=== PATIENT | male | born 1960 | race Caucasian/White ===

== ENCOUNTER 2018-12-10 16:21 | Emergency (ER) | payer OTHER ==
[2018-12-10] MEDS ORDERED: Dexamethasone 4 mg/ml Vial ONE (17:25)
[2018-12-10] MEDS ORDERED: Ketorolac Tromethamine 30 MG/ML VIAL ONE (17:25)
[2018-12-10 18:34] LABS: Bilirubin Negative (Negative); Blood, Urine Negative (Negative); Clarity Clear (Clear); Glucose, Urine (Dipstick) Normal (Negative); Leukocyte Negative Leu/uL (Negative); Nitrite Negative (Negative); Protein, Urine (Dipstick) 100 mg/dL (Neg-Trace); RBC/HPF None Seen HPF (0-3)
[2018-12-10 18:51] LABS: Bacteria/HPF None Seen HPF (None Seen); Sperm/HPF 4+ HPF (None Seen)
== END 2018-12-10 19:26 ==
LOC: ERS 16:21 → EEVIPCON 16:21 → ERS 19:26
DX: M54.42 Lumbago with sciatica, left side (principal); F41.9 Anxiety disorder, unspecified; F32.9 Major depressive disorder, single episode, unspecified
CPT/HCPCS: 81003; 81015; 99284; J1100; J1885

== ENCOUNTER 2018-12-11 19:43 | Emergency (ER) | payer OTHER ==
--- NOTE | 2018-12-11 20:08 | PDOC.EVN ---
Event Note - Event Note Event Note: Patient is a 58M who presented to the ED via EMS as a level 1 trauma activation s/p suicide attempt where he cut his Right lateral neck with a razor. Patient is a an inmate. EMS reported 500 mL blood loss on scene but patient was hypodermically stable and not tachycardic enroute. He did nto receive fluid or blood products prior to arrival. He reported SI and denied HI. On eval in the ED my Dr. Saldivar and myself, it was noted the patient has a single 5-6 cm laceration to the R anterolateral neck in zone 2. The laceration extended into the adipose tissue and did not violate the platysma. Bleeding was well controlled with direct pressure and the wound was explored by Dr. Reeder , myself, and Dr. Blackwood in the ED. HR 87, SBP 153, O2 100% on room air, RR 18 , GCS was 15. No concern for airway compromise. Dr. Saldivar differed to the ED provider after his evaluation at which time Dr. Cavazos downgraded the activation to a Level 2. ED provider also elected to not draw labs as well. Laceration repair and dispo per ED ED Provider, Dr. Zelaya. Trauma signing off. Please call with questions or concerns. Karina Sierra PA-C Trauma Surgery
--- NOTE | 2018-12-12 10:27 | HP ---
HISTORY OF PRESENT ILLNESS: Mr. Kuhn is a 58-year-old white male prisoner, who cut his right neck with a razor blade at the longterm. This was activated as a level one trauma as it was reported that he had a deep laceration with major vascular involvement. I was present in the emergency room at the time of the patient's arrival. The patient was hemodynamically stable and I immediately examined his neck. This was found to be relatively superficial. It did not appear to have penetrated the platysma. There was skin edge bleeding, but no major vascular injury. I cleansed the wound, locally anesthetized this with 1% lidocaine with epinephrine and explored a little more carefully to make sure I was not missing something. At the point that was obvious that this was superficial, I turned over the care of the laceration to the emergency room physician as this clearly did not require surgical closure. Job ID: [id number]
== END 2018-12-11 20:40 ==
LOC: ERS 19:43
DX: S11.91XA Laceration without foreign body of unspecified part of neck, initial encounter (principal); R45.851 Suicidal ideations; F41.9 Anxiety disorder, unspecified; F32.9 Major depressive disorder, single episode, unspecified; X78.8XXA Intentional self-harm by other sharp object, initial encounter
CPT/HCPCS: 12042; G0390

== ENCOUNTER 2019-04-09 11:32 | Emergency (ER) | payer OTHER | END 2019-04-09 14:04 | disposition home or self-care (01) | LOC: EEVIPCON 11:32 → ERS 11:32 | DX: R41.82 Altered mental status, unspecified (principal); I10 Essential (primary) hypertension; E11.9 Type 2 diabetes mellitus without complications; J44.9 Chronic obstructive pulmonary disease, unspecified; K21.9 Gastro-esophageal reflux disease without esophagitis; F41.9 Anxiety disorder, unspecified; F32.9 Major depressive disorder, single episode, unspecified; Z79.02 Long term (current) use of antithrombotics/antiplatelets; Z79.4 Long term (current) use of insulin; Z79.899 Other long term (current) drug therapy | CPT/HCPCS: 94760 ==

== ENCOUNTER 2019-12-29 14:45 | Emergency (ER) | payer OTHER ==
[2019-12-29 15:47] LABS: Hemoglobin 12.7 g/dL (14.0-18.0); Mean Corpuscular HGB CONC 34.5 g/dL (32.0-36.0); Mean Corpuscular Hemoglobin 31.1 pg (27.0-31.0); Mean Corpuscular Volume 90.2 fL (78.0-98.0); Mean Platelet Volume 6.6 fL (7.4-10.4); Platelet Count 218 thou/uL (130-400); RBC Distribution Width 11.7 % (11.5-14.5); Red Blood Cell (RBC) Count 4.08 mill/uL (4.70-6.10); White Blood Cell (WBC) Count 19.1 thou/uL (4.8-10.8)
[2019-12-29] MEDS ORDERED: Morphine 4 MG/ML VIAL ONE (15:47)
[2019-12-29] MEDS ORDERED: Ketorolac Tromethamine 30 MG/ML VIAL ONE (15:47)
[2019-12-29 16:09] LABS: Band 37 % (5-11); Lymphocytes 8 % (21-51); MDiff Complete? YES; Monocytes 4 % (0-10); Neutrophil 51 % (42-75); Platelet Morphology Comment Appears Adequate; Polychromasia SLIGHT = 2-3 cells (100X) (0-2/hpf)
[2019-12-29 16:13] LABS: ALT (SGPT) 11 U/L (8-55); AST (SGOT) 18 U/L (5-34); Albumin 3.8 g/dL (3.4-4.8); Alkaline Phosphatase 79 U/L (40-110); Anion Gap 15 mmol/L (10-20); BUN (Urea Nitrogen) 15 mg/dL (8.4-25.7); Bilirubin, Total 0.6 mg/dL (0.2-1.2); Calc. Creatinine Clearance 0 mL/min (70-130); Calcium 8.9 mg/dL (7.8-10.44); Carbon Dioxide 26 mmol/L (23-31); Chloride 94 mmol/L (98-107); Estimated GFR-MDRD 75; Globulin 3.7 g/dL (2.4-3.5); Glucose 168 mg/dL (80-115); Potassium 4.5 mmol/L (3.5-5.1); Protein, Total 7.5 g/dL (5.8-8.1); Sodium 130 mmol/L (136-145)
--- NOTE | 2019-12-29 16:21 | ULT ---
Scrotal sonogram with duplex evaluation HISTORY: Testicular pain and swelling. FINDINGS: Right testicle is 4.6 cm length. Normal appearance with good color and spectral Doppler alanna w. Left testicle measures up to 4.1 cm with increased internal color and spectral Doppler flow. Fluid wi thin the left side of the scrotum is mildly loculated. Epididymis is hyperemic. IMPRESSION : Left epididymoorchitis with septated small left hydrocele.. No evidence of testicular mass or torsion.
[2019-12-29 17:03] LABS: Bacteria/HPF 4+ HPF (None Seen); Bilirubin Negative (Negative); Blood, Urine 1+ (Negative); Clarity Turbid (Clear); Glucose, Urine (Dipstick) Normal (Negative); Ketone, Urine Negative (Negative); Leukocyte 250 Leu/uL (Negative); Nitrite Negative (Negative); Protein, Urine (Dipstick) 100 mg/dL (Neg-Trace); RBC/HPF 0-3 HPF (0-3); Specific Gravity, Urine 1.025 (1.002-1.036); Squamous Epithelial None Seen HPF (0-3); WBC/HPF 21-50 HPF (0-3)
[2019-12-29] MEDS ORDERED: Piperacillin/Tazobactam 4.5 GM VIAL ONE (18:16)
[2019-12-29] MEDS ORDERED: Sodium Chloride 0.9% 100 ML ONE (18:16)
[2019-12-29 19:54] LABS: Lactic Acid 1.9 mmol/L (0.5-2.2)
--- NOTE | 2019-12-30 01:29 | CON ---
DATE OF CONSULTATION: 12/29/2019 REASON FOR CONSULTATION: Left orchitis. HISTORY OF PRESENT ILLNESS: Mr. Kuhn is a 59-year-old male who is a prisoner , presented to the emergency room due to worsening left scrotal discomfort. Per emergency room, the patient was found to have T-max of fever reportedly, however , in the emergency room, he is afebrile at 98.8, and vital signs are stable. He relates history of left scrotal discomfort. He denies history of trauma, he is a prisoner, and most of the history is obtained per chart as his history is somewhat vague. He denies obstructive urinary symptoms, dysuria, gross hematuria, flank or abdominal pain. The patient's medical history includes diabetes, hepatitis C. Of recent , he tested positive for COVID-29 July 2019. He denies prior history of epididymo-orchitis. Currently, he is resting comfortably. He denies recent weight loss, fatigue, or recent fall. PAST MEDICAL HISTORY: Includes hypertension, CAD, hepatitis C, type 2 diabetes, chronic back pain, COPD, GERD, hearing loss, obstructive sleep apnea, osteoarthritis, of note COVID-19 tested positive July 2019. In December 2018, he presented with self-inflicted right neck razor blade trauma seen by General Surgery. PAST SURGICAL HISTORY: Includes appendectomy, coronary artery bypass grafting three vessel in 1996, cholecystectomy, and coronary artery stent. PSYCHIATRIC HISTORY: Includes anxiety and depression. SOCIAL HISTORY: He is a former smoker, lives in longterm, former alcoholic, the patient is a formal drug abuser with hepatitis C positive. REVIEW OF SYSTEMS: Ten-point review of systems is as above, otherwise noncontributory. PHYSICAL EXAMINATION: VITAL SIGNS: Reported fever of 102, however, in the emergency room he is afebrile of 98. Blood pressure and vital signs are stable and appears to be comfortable. GENERAL: The patient is in no acute distress. HEENT: Grossly unremarkable. Positive PPE in place HEART: Regular rate. LUNGS: Clear. The patient in four-point shackles. [facility] guards at bedside. ABDOMEN: Soft. No rigidity. No rebound. No suprapubic tenderness of concern. : Demonstrates a circumcised phallus. Meatus is grossly unremarkable. There is evidence of left scrotal swelling consistent with left epididymo-orchitis. There is mild reactive erythema of the scrotum consistent with epididymo-orchitis with reactive hydrocele. There is no gross evidence of fluctuance, crepitus, pitting edema of concern. Tenderness noted with elevation of the left hemiscrotum. Perineum inspected demonstrating no evidence of fluctuant mass, induration of concern. EXTREMITIES: No cyanosis, clubbing, or edema. Skin tattoos present no obvious rash or lesions of concern PERTINENT LABORATORY DATA: White count of 19, hemoglobin 12, and platelet 218. Sodium 130, BUN 15, creatinine 1.0. His lactic acid is elevated mildly at 2.5. Albumin 1.0. Urinalysis, in which straight cath specimen is obtained from the nursing staff and there was no significant postvoid residual of concern. Per nursing staff, catheter passed without significant issues. UA demonstrates yellow turbid urine, 100 protein, 1+ blood, 250 of leukocyte esterase, 0 to 3 rbc's, 20 to 50 wbc's, no epithelials, 4+ bacteria. Culture has been sent by the emergency room. He has been provided Zosyn and vancomycin from the emergency room. Scrotal ultrasound results and imaging which I reviewed myself: Demonstrates findings consistent with left epididymo-orchitis, with increased blood flow of the left testicle and epididymis consistent with left epididymo-orchitis. There is a loculated septated left hydrocele with no evidence of testicular abscess or torsion. DIAGNOSTIC STUDIES: CT of the abdomen and pelvis again, which I reviewed with contrast dating back January 2016, per my review, CT prostate volume is only 20 g. The bladder is not significantly distended. CT demonstrates bilateral symmetric enhancement, mild fullness of the left kidney, likely extrarenal pelvis of the left kidney, small left renal cortical cyst or perirenal fluid collection. IMPRESSION AND PLAN: Mr. Kuhn is a 59-year-old inmate with COVID-19 test positive July 2019. 1. History of coronary artery disease. 2. History of hepatitis C. 3. History of substance abuse. Presents with UA positive for urinary tract infection with ultrasound demonstrating left epididymo-orchitis. I reviewed the images, the patient's clinical history and physical exam consistent with epididymo-orchitis. There is no evidence of testicular abscess of concern. Recommend broad-spectrum antibiotics, Zosyn and vancomycin may be continued on the floor. Keep scrotum elevated. I do expect scrotal edema and swelling to persist minimum 2 to 3 weeks as epididymo-orchitis takes few weeks to resolve. Mackay catheter/CIC catheter was able to be passed without significant issues. There is no need for indwelling Mackay catheter or Flomax as he has no obstructive urinary symptoms of concern. Job ID: [id number] [facility]
== END 2019-12-29 21:03 | disposition short-term general hospital (02) ==
LOC: EDBD 14:45 → ERS 14:45
DX: A41.9 Sepsis, unspecified organism (principal); N45.3 Epididymo-orchitis; I10 Essential (primary) hypertension; K21.9 Gastro-esophageal reflux disease without esophagitis; M19.90 Unspecified osteoarthritis, unspecified site; G47.30 Sleep apnea, unspecified; E11.9 Type 2 diabetes mellitus without complications; J44.9 Chronic obstructive pulmonary disease, unspecified; F41.9 Anxiety disorder, unspecified; F32.9 Major depressive disorder, single episode, unspecified; Z86.19 Personal history of other infectious and parasitic diseases; Z87.891 Personal history of nicotine dependence; Z79.51 Long term (current) use of inhaled steroids; Z79.4 Long term (current) use of insulin; Z79.899 Other long term (current) drug therapy
CPT/HCPCS: 36415; 51701; 76870; 80053; 81003; 81015; 83605; 85025; 87040; 87077; 87086; 87186; 93976; 94760; 96361; 96365; 96366; 96367; 96375; J1885; J2270; J2543; J3370; J3490; J7030

== ENCOUNTER 2020-04-12 19:10 | Emergency (ER) | payer OTHER ==
--- NOTE | 2020-04-12 20:33 | RAD ---
EXAM: XR Ribs Lt>=2 View W/PA CXR PROVIDED CLINICAL HISTORY: Injury after falling. Patient complains of soreness and scrapes involving left chest COMPARISON: Chest x-ray on 04/09/2019 FINDINGS: Postoperative changes related to CABG are again seen. The cardiac silhouette is magnified by projecti on but does appear mildly enlarged. There is linear atelectasis present at the left lung base. Lungs otherwise appear clear. No pneumothorax or pleural effusion is seen on this exam. No rib fractu re is visualized. IMPRESSION: 1. No acute cardiopulmonary process. 2. Mild cardiomegaly. 3. No left-sided rib fracture is visualized.
--- NOTE | 2020-04-12 22:10 | RAD ---
LEFT ELBOW FOUR VIEWS: 04/12/20 COMPARISON: None. HISTORY: Injury, trauma, pain. FINDINGS: There is a comminuted nondisplaced proximal left ulnar fracture involving the olecranon. No evidence for dislocation. There is dorsal soft tissue swelling involving the forearm and there is volar athero sclerotic calcification. IMPRESSION: Comminuted nondisplaced olecranon/proximal left ulnar fracture. Orthopedic consultation advised. POS: ANTHONY
== END 2020-04-12 20:59 ==
LOC: EEVIPCON 19:10 → ERS 19:10
DX: S20.212A Contusion of left front wall of thorax, initial encounter (principal); S50.02XA Contusion of left elbow, initial encounter; S80.212A Abrasion, left knee, initial encounter; I10 Essential (primary) hypertension; J44.9 Chronic obstructive pulmonary disease, unspecified; K21.9 Gastro-esophageal reflux disease without esophagitis; F41.9 Anxiety disorder, unspecified; F32.9 Major depressive disorder, single episode, unspecified; Z87.891 Personal history of nicotine dependence; Z79.899 Other long term (current) drug therapy; W18.30XA Fall on same level, unspecified, initial encounter
CPT/HCPCS: 29105

== ENCOUNTER 2020-11-15 15:56 | Inpatient (IN) | payer OTHER ==
[2020-11-15 16:50] LABS: Bilirubin Negative (Negative); Blood, Urine Negative (Negative); Glucose, Urine (Dipstick) 100 mg/dL (Negative); Ketone, Urine Trace mg/dL (Negative); Leukocyte Negative (Negative); Nitrite Negative (Negative); Protein, Urine (Dipstick) 30 mg/dL (Neg-Trace); Urobilinogen 0.2 mg/dL (Less than 2); pH, Urine 5.5 (5.0-9.0)
[2020-11-15 16:55] LABS: #Basophils 0.1 thou/uL (0.0-0.2); #Eosinphils 0.1 thou/uL (0.0-0.7); #Lymphocytes 1.9 thou/uL (1.20-3.40); #Monocytes 0.6 thou/uL (0.11-0.59); #Neutrophils 5.8 thou/uL (1.40-6.50); %Basophils 0.7 % (0.0-1.0); %Eosinophils 0.9 % (0.0-10.0); %Lymphocytes 22.4 % (21.0-51.0); %Monocytes 7.3 % (0.0-10.0); %Neutrophils 68.7 % (42.0-75.0); Hemoglobin 11.8 g/dL (14.0-18.0); Mean Corpuscular HGB CONC 35.2 g/dL (32.0-36.0); Mean Corpuscular Hemoglobin 32.4 pg (27.0-31.0); Mean Platelet Volume 6.9 fL (7.4-10.4); Platelet Count 165 thou/uL (130-400); RBC Distribution Width 11.9 % (11.5-14.5); Red Blood Cell (RBC) Count 3.66 mill/uL (4.70-6.10); White Blood Cell (WBC) Count 8.4 thou/uL (4.8-10.8)
[2020-11-15 16:57] LABS: Clarity Clear (Clear); Specific Gravity, Urine 1.022 (1.002-1.036)
[2020-11-15 17:01] LABS: Amphetamine Not Detected (NotDetected); Barbiturates Screen Not Detected (NotDetected); Benzodiazepine Screen Not Detected (NotDetected); Cocaine Metabolite Screen Not Detected (NotDetected); Medtox Control Line Valid? VALID (VALID); Medtox Reader # READER 4; Methadone Not Detected (NotDetected); Methamphetamine Not Detected (NotDetected); Opiate Screen Not Detected (NotDetected); Oxycodone Screen Not Detected (NotDetected); Phencyclidine (PCP) Not Detected (NotDetected); THC/Cannabinoid Screen Not Detected (NotDetected); Tricyclic Screen Not Detected (NotDetected)
[2020-11-15 17:02] LABS: Bacteria/HPF None Seen HPF (None Seen); RBC/HPF 0-3 HPF (0-3); Squamous Epithelial 0-3 HPF (0-3); WBC/HPF 0-3 HPF (0-3)
[2020-11-15 17:35] LABS: ALT (SGPT) 14 U/L (8-55); AST (SGOT) 17 U/L (5-34); Acetaminophen Less than 6.0 mcg/mL (10.0-30.0); Albumin 3.7 g/dL (3.4-4.8); Alcohol Less than 10 mg/dL (Less than 10); Alkaline Phosphatase 65 U/L (40-110); Anion Gap 15 mmol/L (10-20); BUN (Urea Nitrogen) 14 mg/dL (8.4-25.7); Bilirubin, Total 0.3 mg/dL (0.2-1.2); CK (CPK) 62 U/L (30-200); Calc. Creatinine Clearance 0 mL/min (70-130); Calcium 8.6 mg/dL (7.8-10.44); Carbon Dioxide 26 mmol/L (23-31); Chloride 101 mmol/L (98-107); Globulin 2.4 g/dL (2.4-3.5); Glucose 223 mg/dL (80-115); Lipase 43 U/L (8-78); Protein, Total 6.1 g/dL (5.8-8.1); Salicylate Less than 8.0 mg/dL (15.0-30.0); Sodium 138 mmol/L (136-145)
[2020-11-15 17:40] LABS: Carbamazepine-Tegretol 5.4 ug/mL (4.0-12.0)
[2020-11-15] MEDS ORDERED: Dextrose 5% in Water 1,000 ML IV PRN (21:02)
[2020-11-15] MEDS ORDERED: Dextrose 50% Abboject 50 ML SYRINGE SLOW IVP PRN (21:02)
[2020-11-15] MEDS ORDERED: Acetaminophen 650 MG Suppository PR PRN (21:02)
[2020-11-15] MEDS ORDERED: Ondansetron PF 4 MG/2 ML Vial IVP PRN (21:02)
[2020-11-15] MEDS ORDERED: HumaLOG 300 UNITS/3 ML VIAL SC PRN (21:02)
[2020-11-16 01:09] LABS: SARS-CoV-2 NAA Rapid Test Not Detected (NotDetected)
[2020-11-16 03:30] VITALS: BMI 32.7
[2020-11-16] MEDS ORDERED: Sodium Chloride 0.9% 1,000 ML IV SCH (07:00)
[2020-11-16 07:36] LABS: #Eosinphils 0.1 thou/uL (0.0-0.7); #Lymphocytes 1.5 thou/uL (1.20-3.40); #Monocytes 0.6 thou/uL (0.11-0.59); #Neutrophils 4.3 thou/uL (1.40-6.50); %Basophils 0.5 % (0.0-1.0); %Eosinophils 1.1 % (0.0-10.0); %Lymphocytes 22.9 % (21.0-51.0); %Monocytes 8.9 % (0.0-10.0); %Neutrophils 66.6 % (42.0-75.0); Hemoglobin 12.7 g/dL (14.0-18.0); Mean Corpuscular HGB CONC 34.6 g/dL (32.0-36.0); Mean Corpuscular Hemoglobin 32.1 pg (27.0-31.0); Mean Corpuscular Volume 92.8 fL (78.0-98.0); Mean Platelet Volume 7.2 fL (7.4-10.4); Platelet Count 174 thou/uL (130-400); RBC Distribution Width 12.1 % (11.5-14.5); Red Blood Cell (RBC) Count 3.95 mill/uL (4.70-6.10); White Blood Cell (WBC) Count 6.5 thou/uL (4.8-10.8)
[2020-11-16 07:42] LABS: Hemoglobin A1c 8.7 % (4.0-6.0)
[2020-11-16 07:55] LABS: Anion Gap 12 mmol/L (10-20); BUN (Urea Nitrogen) 8 mg/dL (8.4-25.7); Calc. Creatinine Clearance 127 mL/min (70-130); Calcium 9.1 mg/dL (7.8-10.44); Carbon Dioxide 26 mmol/L (23-31); Chloride 105 mmol/L (98-107); Glucose 238 mg/dL (80-115); Potassium 4.2 mmol/L (3.5-5.1); Sodium 139 mmol/L (136-145)
[2020-11-16] MEDS ORDERED: Piperacillin/Tazobactam 4.5 GM in Sodium Chloride 0.9% 100 ML IVPB SCH (08:00)
[2020-11-16] MEDS: Acetaminophen 325 MG TAB PO PRN ×2 (10:18→20:22)
[2020-11-16] MEDS: Ondansetron ODT 4 MG TAB PO PRN ×2 (10:33→20:24)
[2020-11-16] MEDS: HumaLOG 300 UNITS/3 ML VIAL SC PRN (17:28)
[2020-11-16] MEDS ORDERED: Aspirin 81 mg Enteric Coated Tablet PO SCH (19:30)
[2020-11-16] MEDS ORDERED: Clopidogrel Bisulfate 75 MG TAB PO SCH (19:45)
[2020-11-16] MEDS: Aripiprazole 10 MG TAB PO SCH (20:22)
[2020-11-16] MEDS: Atorvastatin Calcium 40 MG TAB PO SCH (20:23)
[2020-11-16] MEDS: carBAMazepine 200 MG TAB PO SCH (20:24)
[2020-11-16] MEDS: NPH, Human Insulin Isophane 300 UNIT/3 ML VIAL SC SCH (20:27)
[2020-11-17] MEDS ORDERED: Melatonin 3 MG TAB PO SCH ×2 (01:45→20:30)
[2020-11-17] MEDS: NPH, Human Insulin Isophane 300 UNIT/3 ML VIAL SC SCH ×2 (09:02→20:45)
[2020-11-17] MEDS: Aspirin 81 mg Enteric Coated Tablet PO SCH (09:02)
[2020-11-17] MEDS: Clopidogrel Bisulfate 75 MG TAB PO SCH (09:02)
[2020-11-17] MEDS ORDERED: Morphine 2 MG/ML VIAL SLOW IVP PRN (09:42)
[2020-11-17] MEDS: HumaLOG 300 UNITS/3 ML VIAL SC PRN ×2 (11:16→17:20)
[2020-11-17] MEDS: Gabapentin 100 MG CAP PO PRN (12:02)
[2020-11-17] MEDS: Acetaminophen 325 MG TAB PO PRN (13:44)
[2020-11-17] MEDS ORDERED: Insulin Regular 300 UNITS/3 ML VIAL SC PRN (17:36)
[2020-11-17] MEDS: Aripiprazole 10 MG TAB PO SCH (20:44)
[2020-11-17] MEDS: Atorvastatin Calcium 40 MG TAB PO SCH (20:44)
[2020-11-17] MEDS: carBAMazepine 200 MG TAB PO SCH (20:45)
[2020-11-18] MEDS ORDERED: Lorazepam 2 MG/ML VIAL SLOW IVP SCH (03:30)
[2020-11-18 05:58] LABS: Anion Gap 14 mmol/L (10-20); BUN (Urea Nitrogen) 13 mg/dL (8.4-25.7); Calc. Creatinine Clearance 121 mL/min (70-130); Carbon Dioxide 22 mmol/L (23-31); Chloride 103 mmol/L (98-107); Glucose 232 mg/dL (80-115); Potassium 4.9 mmol/L (3.5-5.1); Sodium 134 mmol/L (136-145)
[2020-11-18] MEDS: HumaLOG 300 UNITS/3 ML VIAL SC PRN ×2 (06:42→12:41)
[2020-11-18 07:18] LABS: Hemoglobin 13.8 g/dL (14.0-18.0); Mean Corpuscular HGB CONC 33.5 g/dL (32.0-36.0); Mean Corpuscular Hemoglobin 31.4 pg (27.0-31.0); Mean Corpuscular Volume 93.6 fL (78.0-98.0); Mean Platelet Volume 6.6 fL (7.4-10.4); Platelet Count 213 thou/uL (130-400); RBC Distribution Width 12.3 % (11.5-14.5)
[2020-11-18 07:29] LABS: INR-International Normal Ratio 0.9; PTT 25.4 sec (22.9-36.1); Prothrombin Time 12.3 sec (12.0-14.7)
[2020-11-18] MEDS: Clopidogrel Bisulfate 75 MG TAB PO SCH (08:58)
[2020-11-18] MEDS: Aspirin 81 mg Enteric Coated Tablet PO SCH (08:58)
[2020-11-18] MEDS: Gabapentin 100 MG CAP PO PRN ×2 (08:58→16:53)
[2020-11-18] MEDS: NPH, Human Insulin Isophane 300 UNIT/3 ML VIAL SC SCH (09:08)
[2020-11-18] MEDS ORDERED: Venlafaxine XR 37.5 MG CAP PO SCH (10:15)
[2020-11-18] MEDS: Lorazepam 0.5 MG TAB PO PRN ×2 (12:31→16:54)
[2020-11-18] MEDS: Acetaminophen 325 MG TAB PO PRN ×2 (12:31→16:53)
[2020-11-18 12:39] VITALS: TEMP 98.2
[2020-11-18] MEDS ORDERED: methylPREDNISolone Sod Succ/PF 125 MG/2 ML VIAL IVP SCH (14:15)
[2020-11-18] MEDS ORDERED: Lidocaine 5% Patch TD SCH (15:00)
[2020-11-18 16:33] VITALS: BP 133/73
[2020-11-18] MEDS ORDERED: Venlafaxine HCl XR 75 MG CAP PO SCH (21:00)
[2020-11-19] MEDS ORDERED: Transdermal Patch Removal TOP SCH (03:00)
[2020-11-19] MEDS ORDERED: Venlafaxine XR 37.5 MG CAP PO SCH (09:00)
== END 2020-11-18 18:50 | DRG 100 ==
LOC: ERS 15:56 → EEVIPCON 15:56 → 2SE 20:24
PROVIDERS: ADMIT Student in an Organized Health Care Education/Training Program; ATTEND Internal Medicine
DX: G40.909 Epilepsy, unspecified, not intractable, without status epilepticus (principal); G93.41 Metabolic encephalopathy; Q21.1 Atrial septal defect; I10 Essential (primary) hypertension; Z20.822 Contact with and (suspected) exposure to COVID-19; I25.10 Atherosclerotic heart disease of native coronary artery without angina pectoris; E11.65 Type 2 diabetes mellitus with hyperglycemia; G89.29 Other chronic pain; J44.9 Chronic obstructive pulmonary disease, unspecified; K21.9 Gastro-esophageal reflux disease without esophagitis; H91.90 Unspecified hearing loss, unspecified ear; Z88.8 Allergy status to other drugs, medicaments and biological substances; D64.9 Anemia, unspecified; M19.90 Unspecified osteoarthritis, unspecified site; G47.33 Obstructive sleep apnea (adult) (pediatric); F41.9 Anxiety disorder, unspecified; F32.9 Major depressive disorder, single episode, unspecified; M25.512 Pain in left shoulder; R07.9 Chest pain, unspecified; R32 Unspecified urinary incontinence; M54.16 Radiculopathy, lumbar region; M50.20 Other cervical disc displacement, unspecified cervical region; Z86.19 Personal history of other infectious and parasitic diseases; Z88.5 Allergy status to narcotic agent; Z86.16 Personal history of COVID-19; Z95.1 Presence of aortocoronary bypass graft; Z90.49 Acquired absence of other specified parts of digestive tract; Z95.5 Presence of coronary angioplasty implant and graft; Z87.891 Personal history of nicotine dependence; Z79.01 Long term (current) use of anticoagulants; Z79.82 Long term (current) use of aspirin; Z79.4 Long term (current) use of insulin; Z79.51 Long term (current) use of inhaled steroids; Z79.899 Other long term (current) drug therapy
CPT/HCPCS: 36415; 36416; 70450; 70551; 71045; 72141; 72148; 80048; 80053; 80156; 80306; 80307; 81003; 81015; 82140; 82550; 83036; 83690; 83880; 84443; 84484; 85025; 85027; 85610; 85730; 87040; 93005; 93306; 95712; 95819; 95957; J1815; J2060; J2270; J2543; J2930; J3490; Q0162; U0002; U0005

== ENCOUNTER 2024-05-27 19:24 | Observation (INO) | payer OTHER ==
[2024-05-27] MEDS ORDERED: Dextrose 50% Abboject 50 ML SYRINGE SLOW IVP PRN (21:13)
[2024-05-27] MEDS ORDERED: Ondansetron ODT 4 MG TAB PO PRN (21:13)
[2024-05-27] MEDS ORDERED: Glucagon 1 MG/ML KIT IM PRN (21:13)
[2024-05-27] MEDS ORDERED: Ondansetron PF 4 MG/2 ML Vial IVP PRN (21:13)
[2024-05-27] MEDS ORDERED: Dextrose 5% in Water 1,000 ML IV PRN (21:13)
[2024-05-27] MEDS ORDERED: Lorazepam 2 MG/ML VIAL SLOW IVP PRN (21:17)
[2024-05-27] MEDS ORDERED: Ipratropium/Albuterol 3 ML NEB NEB PRN (21:21)
[2024-05-27 21:44] LABS: #Basophils Less than 0.03 10x3/uL (0.0-0.2); %Basophils 0.1 % (0.0-1.0); %Eosinophils 0.6 % (0.0-10.0); %Lymphocytes 18.5 % (21.0-51.0); %Monocytes 7.9 % (0.0-10.0); %Neutrophils 72.6 % (42.0-75.0); Hematocrit 35.2 % (42.0-52.0); Hemoglobin 11.9 g/dL (14.0-18.0); Mean Corpuscular HGB CONC 33.8 g/dL (32.0-36.0); Mean Corpuscular Hemoglobin 29.6 pg (27.0-31.0); Mean Corpuscular Volume 87.6 fL (78.0-98.0); Mean Platelet Volume 9.1 fL (7.4-10.4); Platelet Count 178 10x3/uL (130-400); RBC Distribution Width 13.5 % (11.5-14.5); Red Blood Cell (RBC) Count 4.02 mill/uL (4.70-6.10)
[2024-05-27] MEDS: HYDROcodone/Acetaminophen 5/325 mg Tablet PO PRN (21:49)
[2024-05-27] MEDS: Insulin Lispro 100 UNIT/ML 10 ML VIAL SC PRN (21:50)
[2024-05-27 22:01] VITALS: BMI 33.3
[2024-05-27 22:04] LABS: Carbamazepine-Tegretol 11.6 ug/mL (4.0-12.0)
[2024-05-27 22:07] LABS: ALT (SGPT) 8 U/L (8-55); AST (SGOT) 12 U/L (5-34); Alkaline Phosphatase 82 U/L (40-110); Anion Gap 17 mmol/L (10-20); BUN (Urea Nitrogen) 11 mg/dL (8.4-25.7); Bilirubin, Total 0.2 mg/dL (0.2-1.2); Calc. Creatinine Clearance 110 mL/min (70-130); Calcium 8.3 mg/dL (7.8-10.44); Carbon Dioxide 21 mmol/L (23-31); Chloride 107 mmol/L (98-107); Estimated GFR 95; Globulin 3.2 g/dL (2.4-3.5); Glucose 306 mg/dL (80-115); Magnesium 1.6 mg/dL (1.6-2.6); Potassium 3.6 mmol/L (3.5-5.1); Protein, Total 6.2 g/dL (5.8-8.1); Sodium 141 mmol/L (136-145)
[2024-05-27] MEDS: Ketorolac Tromethamine 30 MG (1 mL) VIAL IVP SCH (23:57)
[2024-05-28] MEDS: Sodium Bicarb 50 mEq/50 ML VIAL IVP SCH (01:49)
[2024-05-28 02:10] LABS: Carbamazepine-Tegretol 10.4 ug/mL (4.0-12.0)
[2024-05-28 03:00] LABS: Amphetamine Not Detected (NotDetected); Barbiturates Screen Not Detected (NotDetected); Benzodiazepine Screen Not Detected (NotDetected); Cocaine Metabolite Screen Not Detected (NotDetected); Methadone Not Detected (NotDetected); Methamphetamine Not Detected (NotDetected); Opiate Screen Detected (NotDetected); Oxycodone Screen Not Detected (NotDetected); Phencyclidine (PCP) Not Detected (NotDetected); THC/Cannabinoid Screen Not Detected (NotDetected); Tricyclic Screen Not Detected (NotDetected)
[2024-05-28 04:39] LABS: ALT (SGPT) 7 U/L (8-55); AST (SGOT) 11 U/L (5-34); Acetaminophen Less than 10 mcg/mL (Less than 10); Albumin 2.7 g/dL (3.4-4.8); Alcohol Less than 10.0 mg/dL (Less than 10); Alkaline Phosphatase 87 U/L (40-110); Anion Gap 14 mmol/L (10-20); BUN (Urea Nitrogen) 9 mg/dL (8.4-25.7); Bilirubin, Total 0.1 mg/dL (0.2-1.2); Calc. Creatinine Clearance 126 mL/min (70-130); Calcium 8.2 mg/dL (7.8-10.44); Carbon Dioxide 25 mmol/L (23-31); Chloride 106 mmol/L (98-107); Estimated GFR 99; Globulin 3.1 g/dL (2.4-3.5); Glucose 311 mg/dL (80-115); Potassium 3.7 mmol/L (3.5-5.1); Protein, Total 5.8 g/dL (5.8-8.1); Salicylate Less than 8.0 mg/dL (Less than 8.0); Sodium 141 mmol/L (136-145)
[2024-05-28 05:25] LABS: Carbamazepine-Tegretol 9.6 ug/mL (4.0-12.0)
[2024-05-28] MEDS: Isosorbide Mononitrate 30 MG ER.TAB PO SCH (08:45)
[2024-05-28] MEDS: Venlafaxine HCl XR 75 MG CAP PO SCH (08:45)
[2024-05-28] MEDS: metFORMIN 500 MG TAB PO SCH (08:45)
[2024-05-28] MEDS: Cyanocobalamin (Vitamin B-12) 1,000 MCG TAB PO SCH (08:45)
[2024-05-28] MEDS: Lisinopril 5 MG TAB PO SCH (08:45)
[2024-05-28] MEDS: Clopidogrel Bisulfate 75 MG TAB PO SCH (08:45)
[2024-05-28] MEDS: Furosemide 40 MG TAB PO SCH (08:45)
[2024-05-28] MEDS: Aspirin 81 mg Enteric Coated Tablet PO SCH (08:45)
[2024-05-28] MEDS: Insulin NPH Human Isophane 100 UNITS/ML (10 ML VIAL) SC SCH (08:46)
[2024-05-28] MEDS: Insulin Regular, Human 100 UNIT/ML 10 ML VIAL SC SCH (08:46)
[2024-05-28] MEDS: Tamsulosin HCl 0.4 MG CAP PO SCH (09:30)
[2024-05-28] MEDS: Acetaminophen 325 MG TAB PO PRN (09:30)
[2024-05-28 09:41] LABS: Carbamazepine-Tegretol 7.4 ug/mL (4.0-12.0)
[2024-05-28 11:14] VITALS: TEMP 97.8
[2024-05-28] MEDS: Insulin Lispro 100 UNIT/ML 10 ML VIAL SC PRN (11:15)
[2024-05-28 13:49] LABS: Carbamazepine-Tegretol 7.1 ug/mL (4.0-12.0)
[2024-05-28 15:05] VITALS: BMI 33.3
[2024-05-28 15:08] VITALS: BP 129/66
[2024-05-28] MEDS: cefTRIAXone\\ROCEPHIN 1 GM in Sodium Chloride 0.9% 100 ML IVPB SCH (16:14)
[2024-05-28] MEDS ORDERED: Insulin NPH Human Isophane 100 UNITS/ML (10 ML VIAL) SC SCH (21:00)
[2024-05-28] MEDS ORDERED: Ziprasidone 20 MG CAP PO SCH (21:00)
[2024-05-28] MEDS ORDERED: Terazosin HCl 5 MG CAP PO SCH (21:00)
[2024-05-28] MEDS ORDERED: Atorvastatin Calcium 40 MG TAB PO SCH (21:00)
== END 2024-05-28 16:59 ==
LOC: 2NO 20:11 → EEVIPCON 20:11
PROVIDERS: ADMIT Internal Medicine; ATTEND Family Medicine
DX: T42.1X1A Poisoning by iminostilbenes, accidental (unintentional), initial encounter (principal); R33.9 Retention of urine, unspecified; I10 Essential (primary) hypertension; I25.10 Atherosclerotic heart disease of native coronary artery without angina pectoris; E11.9 Type 2 diabetes mellitus without complications; J44.1 Chronic obstructive pulmonary disease with (acute) exacerbation; M25.551 Pain in right hip; N39.0 Urinary tract infection, site not specified; B19.20 Unspecified viral hepatitis C without hepatic coma; Z87.891 Personal history of nicotine dependence; Z95.1 Presence of aortocoronary bypass graft; Z90.49 Acquired absence of other specified parts of digestive tract; Z98.49 Cataract extraction status, unspecified eye; Z91.010 Allergy to peanuts; Z88.8 Allergy status to other drugs, medicaments and biological substances; Z79.82 Long term (current) use of aspirin; Z79.51 Long term (current) use of inhaled steroids; Z79.4 Long term (current) use of insulin; Z79.899 Other long term (current) drug therapy
CPT/HCPCS: 36415; 36416; 80053; 80156; 80306; 80307; 83735; 93005; 93010; 96374; 96375; G0378; J1815; J1885

== ENCOUNTER 2024-06-04 22:08 | Emergency (ER) | payer OTHER ==
[2024-06-04] MEDS ORDERED: Boostrix 0.5 ML (Tdap) VIAL (>/=7 yrs of age) ONE (22:32)
[2024-06-04 23:12] LABS: #Basophils 0.03 10x3/uL (0.0-0.2); %Basophils 0.3 % (0.0-1.0); %Eosinophils 0.7 % (0.0-10.0); %Lymphocytes 13.1 % (21.0-51.0); %Monocytes 7.3 % (0.0-10.0); %Neutrophils 78.2 % (42.0-75.0); Hematocrit 36.2 % (42.0-52.0); Hemoglobin 12.8 g/dL (14.0-18.0); Mean Corpuscular HGB CONC 35.4 g/dL (32.0-36.0); Mean Platelet Volume 8.5 fL (7.4-10.4); Platelet Count 197 10x3/uL (130-400); RBC Distribution Width 14.2 % (11.5-14.5); Red Blood Cell (RBC) Count 4.26 mill/uL (4.70-6.10)
[2024-06-04 23:25] LABS: Alcohol Less than 10.0 mg/dL (Less than 10)
[2024-06-04 23:26] LABS: Prothrombin Time 13.2 sec (12.0-14.7)
[2024-06-04 23:27] LABS: PTT 26.4 sec (22.9-36.1)
[2024-06-04 23:28] LABS: ALT (SGPT) 9 U/L (8-55); AST (SGOT) 24 U/L (5-34); Albumin 3.3 g/dL (3.4-4.8); Alkaline Phosphatase 87 U/L (40-110); Anion Gap 14 mmol/L (10-20); BUN (Urea Nitrogen) 8 mg/dL (8.4-25.7); Bilirubin, Total 0.4 mg/dL (0.2-1.2); Calc. Creatinine Clearance 0 mL/min (70-130); Calcium 8.5 mg/dL (7.8-10.44); Carbon Dioxide 22 mmol/L (23-31); Chloride 101 mmol/L (98-107); Estimated GFR 101; Globulin 3.4 g/dL (2.4-3.5); Glucose 159 mg/dL (80-115); Lipase 13 U/L (8-78); Potassium 3.5 mmol/L (3.5-5.1); Protein, Total 6.7 g/dL (5.8-8.1); Sodium 133 mmol/L (136-145)
== END 2024-06-05 01:47 ==
LOC: ERS 22:08
DX: S01.81XA Laceration without foreign body of other part of head, initial encounter (principal); I10 Essential (primary) hypertension; I25.10 Atherosclerotic heart disease of native coronary artery without angina pectoris; J44.9 Chronic obstructive pulmonary disease, unspecified; Z86.73 Personal history of transient ischemic attack (TIA), and cerebral infarction without residual deficits; Z87.891 Personal history of nicotine dependence; Z95.1 Presence of aortocoronary bypass graft; W19.XXXA Unspecified fall, initial encounter
CPT/HCPCS: 36415; 70450; 71045; 71260; 72125; 74177; 80053; 80307; 83690; 84484; 85025; 85610; 85730; 86850; 86900; 86901; 90715; 93005; 94760; G0390

== ENCOUNTER 2024-07-01 11:55 | Inpatient (IN) | payer OTHER ==
[~2024-07-01 11:55] MED LIST: Iopamidol 370 76% 100 ML VIAL ONE
[2024-07-01 12:51] LABS: #Basophils 0.03 10x3/uL (0.0-0.2); %Basophils 0.2 % (0.0-1.0); %Eosinophils 0.6 % (0.0-10.0); %Lymphocytes 9.8 % (21.0-51.0); %Monocytes 6.8 % (0.0-10.0); %Neutrophils 82.2 % (42.0-75.0); Hematocrit 24.7 % (42.0-52.0); Hemoglobin 8.4 g/dL (14.0-18.0); Mean Corpuscular Hemoglobin 30.9 pg (27.0-31.0); Mean Corpuscular Volume 90.8 fL (78.0-98.0); Mean Platelet Volume 8.4 fL (7.4-10.4); Platelet Count 265 10x3/uL (130-400); RBC Distribution Width 14.7 % (11.5-14.5); Red Blood Cell (RBC) Count 2.72 mill/uL (4.70-6.10)
[2024-07-01 13:05] LABS: INR-International Normal Ratio 1.1; Prothrombin Time 14.5 sec (12.0-14.7)
[2024-07-01 13:34] LABS: ALT (SGPT) 10 U/L (Less than 45); AST (SGOT) 19 U/L (11-34); Albumin 2.5 g/dL (3.1-4.5); Alkaline Phosphatase 85 U/L (40-110); Anion Gap 13 mmol/L (10-20); BUN (Urea Nitrogen) 12 mg/dL (8.4-25.7); Bilirubin, Total 0.5 mg/dL (0.3-1.2); Calc. Creatinine Clearance 0 mL/min (70-130); Calcium 7.7 mg/dL (7.8-10.44); Carbon Dioxide 24 mmol/L (23-31); Cardiac Risk 3.7 (Less than 4.5); Chloride 102 mmol/L (98-107); Cholesterol 126 mg/dl (< 200 Desired); Estimated GFR 98; Globulin 3.2 g/dL (2.4-3.5); Glucose 161 mg/dL (80-115); HDL Cholesterol 34 mg/dL (>60 Neg Risk); LDL Cholesterol, Calculated 82 mg/dL; Potassium 4.2 mmol/L (3.5-5.1); Protein, Total 5.7 g/dL (5.8-8.1); Sodium 135 mmol/L (136-145); Triglycerides 52 mg/dL (Less than 150)
[2024-07-01] MEDS ORDERED: Senokot S 8.6-50 MG TAB PO PRN (14:42)
[2024-07-01] MEDS ORDERED: Dextrose 5% in Water 1,000 ML IV PRN (14:46)
[2024-07-01] MEDS ORDERED: Dextrose 50% Abboject 50 ML SYRINGE SLOW IVP PRN (14:46)
[2024-07-01] MEDS ORDERED: Glucagon 1 MG/ML KIT IM PRN (14:46)
[2024-07-01 15:37] VITALS: BMI 30.1
[2024-07-01] MEDS ORDERED: Ipratropium/Albuterol 3 ML NEB NEB PRN (17:08)
[2024-07-01 17:15] LABS: Actual Bicarbonate (HCO3v) 28.8 mEq/L (22-28); Base Excess 3.4 mEq/L (-2.0 to +3.0); Calcium, Ionized (venous) 1.04 mmol/L (1.16-1.32); Chloride (VBG) 98 mmol/L (98-106); Hematocrit-VBG 28 % (42.0-52.0); Hemoglobin (Hb) 9.5 g/dL (12.6-17.4); Potassium (VBG) 4.04 mmol/L (3.70-5.30); Sodium 135 mmol/L (133-146); pH (venous) 7.395 (7.32-7.43)
[2024-07-01] MEDS ORDERED: Electrolyte Replacement Protocol 1 EACH FS SCH (17:15)
[2024-07-01] MEDS: Metoprolol Succinate XL 25 MG ER.TAB PO SCH (17:50)
[2024-07-01 19:49] LABS: Troponin I 14.126 ng/mL (< 0.028)
[2024-07-01] MEDS: Atorvastatin Calcium 40 MG TAB PO SCH (20:19)
[2024-07-01] MEDS: Melatonin 3 MG TAB PO SCH (20:19)
[2024-07-01] MEDS: Famotidine/PF 20 mg/2ml Vial SLOW IVP SCH (20:19)
[2024-07-01] MEDS: Lisinopril 5 MG TAB PO SCH (20:19)
[2024-07-01] MEDS ORDERED: Atorvastatin Calcium 40 MG TAB PO SCH (21:00)
[2024-07-01] MEDS: Morphine 2 MG/ML VIAL SLOW IVP SCH (21:15)
[2024-07-01] MEDS: Ondansetron PF 4 MG/2 ML Vial IVP PRN (21:16)
[2024-07-01 21:45] LABS: Critical Call Chem Troponin I RESULT DECREASING; Troponin I 13.576 ng/mL (< 0.028)
[2024-07-01] MEDS: Morphine 2 MG/ML VIAL ONE (22:23)
[2024-07-01] MEDS: Ondansetron PF 4 MG/2 ML Vial ONE (22:23)
[2024-07-02] MEDS: diphenhydrAMINE 50 MG/ML VIAL IVP SCH (01:09)
[2024-07-02 01:10] LABS: Critical Call Chem Troponin I RESULT DECREASING; Troponin I 13.552 ng/mL (< 0.028)
[2024-07-02 04:14] LABS: #Basophils 0.03 10x3/uL (0.0-0.2); %Basophils 0.3 % (0.0-1.0); %Eosinophils 0.4 % (0.0-10.0); %Monocytes 7.1 % (0.0-10.0); %Neutrophils 78.8 % (42.0-75.0); Hematocrit 25.6 % (42.0-52.0); Hemoglobin 8.4 g/dL (14.0-18.0); Mean Corpuscular HGB CONC 32.8 g/dL (32.0-36.0); Mean Corpuscular Hemoglobin 30.1 pg (27.0-31.0); Mean Corpuscular Volume 91.8 fL (78.0-98.0); Mean Platelet Volume 8.6 fL (7.4-10.4); Platelet Count 260 10x3/uL (130-400); RBC Distribution Width 14.7 % (11.5-14.5); Red Blood Cell (RBC) Count 2.79 mill/uL (4.70-6.10)
[2024-07-02 04:34] LABS: Anion Gap 12 mmol/L (10-20); BUN (Urea Nitrogen) 13 mg/dL (8.4-25.7); Calc. Creatinine Clearance 104 mL/min (70-130); Calcium 8.2 mg/dL (7.8-10.44); Carbon Dioxide 27 mmol/L (23-31); Chloride 101 mmol/L (98-107); Estimated GFR 96; Glucose 209 mg/dL (80-115); Magnesium 1.5 mg/dL (1.6-2.6); Potassium 4.4 mmol/L (3.5-5.1); Sodium 136 mmol/L (136-145)
[2024-07-02] MEDS: traMADol HCl 50 MG TAB PO PRN (05:35)
[2024-07-02] MEDS: Magnesium 2 GM/50 ML(in water) 2 GM in Premix 1 BAG IVPB SCH ×2 (06:14→12:13)
[2024-07-02] MEDS: Furosemide 40 MG TAB PO SCH (06:14)
[2024-07-02] MEDS: Enoxaparin 40 MG (0.4 mL) SYRINGE SC SCH (08:12)
[2024-07-02] MEDS: Clopidogrel Bisulfate 75 MG TAB PO SCH (08:16)
[2024-07-02] MEDS: Carvedilol 3.125 MG TAB PO SCH (08:16)
[2024-07-02] MEDS: Empagliflozin 10 MG TAB PO SCH (08:16)
[2024-07-02] MEDS: Aspirin 81 mg Enteric Coated Tablet PO SCH (08:16)
[2024-07-02] MEDS ORDERED: Metoprolol Succinate XL 25 MG ER.TAB PO SCH (09:00)
[2024-07-02] MEDS: Insulin Lispro 100 UNIT/ML 10 ML VIAL SC PRN (11:40)
[2024-07-02] MEDS: Acetaminophen 325 MG TAB PO PRN (12:11)
[2024-07-02] MEDS ORDERED: Polyethylene Glycol 3350 17 GM Packet PO PRN (15:48)
[2024-07-02] MEDS: Insulin Glargine 30 UNITS/0.3 ML VIAL SC SCH ×2 (16:50→21:17)
[2024-07-02] MEDS ORDERED: Insulin Lispro 100 UNIT/ML 10 ML VIAL SC PRN (18:51)
[2024-07-02] MEDS: Terazosin HCl 5 MG CAP PO SCH (21:15)
[2024-07-02] MEDS: Senokot S 8.6-50 MG TAB PO SCH (21:16)
[2024-07-02] MEDS: Famotidine 20 MG TAB PO SCH (21:16)
[2024-07-02] MEDS: Ziprasidone 20 MG CAP PO SCH (21:16)
[2024-07-03] MEDS: Sodium Chloride 0.9% 500 ML IV SCH (01:19)
[2024-07-03] MEDS: DOBUTamine 500 mg/250 ml 250 ML IVPB SCH (02:46)
[2024-07-03] MEDS ORDERED: NOREPINEPHRINE 8 MG/250 ML-D5W 250 ML IVPB SCH (03:30)
[2024-07-03 04:00] LABS: #Basophils Less than 0.03 10x3/uL (0.0-0.2); %Basophils 0.2 % (0.0-1.0); %Eosinophils 1.4 % (0.0-10.0); %Lymphocytes 14.7 % (21.0-51.0); %Monocytes 7.1 % (0.0-10.0); Hematocrit 25.4 % (42.0-52.0); Hemoglobin 8.3 g/dL (14.0-18.0); Mean Corpuscular HGB CONC 32.7 g/dL (32.0-36.0); Mean Corpuscular Hemoglobin 30.4 pg (27.0-31.0); Mean Platelet Volume 8.8 fL (7.4-10.4); Platelet Count 280 10x3/uL (130-400); RBC Distribution Width 14.8 % (11.5-14.5); Red Blood Cell (RBC) Count 2.73 mill/uL (4.70-6.10)
[2024-07-03 04:02] VITALS: BP 76/48
[2024-07-03 04:28] LABS: ALT (SGPT) 13 U/L (Less than 45); AST (SGOT) 28 U/L (11-34); Albumin 2.4 g/dL (3.1-4.5); Alkaline Phosphatase 75 U/L (40-110); BUN (Urea Nitrogen) 23 mg/dL (8.4-25.7); Bilirubin, Total 0.5 mg/dL (0.3-1.2); Calc. Creatinine Clearance 71 mL/min (70-130); Calcium 8.3 mg/dL (7.8-10.44); Carbon Dioxide 25 mmol/L (23-31); Estimated GFR 64; Globulin 3.7 g/dL (2.4-3.5); Glucose 277 mg/dL (80-115); Lactic Acid 1.64 mmol/L (0.50-2.20); Magnesium 1.9 mg/dL (1.6-2.6); Protein, Total 6.1 g/dL (5.8-8.1)
[2024-07-03 04:43] LABS: Anion Gap 16 mmol/L (10-20); Chloride 100 mmol/L (98-107); Potassium 4.4 mmol/L (3.5-5.1); Sodium 135 mmol/L (136-145)
[2024-07-03] MEDS: Insulin Lispro 100 UNIT/ML 10 ML VIAL SC PRN (06:09)
[2024-07-03] MEDS: Magnesium 2 GM/50 ML(in water) 2 GM in Premix 1 BAG IVPB SCH (08:31)
[2024-07-03] MEDS: Cyanocobalamin (Vitamin B-12) 1,000 MCG TAB PO SCH (08:31)
[2024-07-03] MEDS: Venlafaxine HCl XR 75 MG CAP PO SCH (08:31)
[2024-07-03] MEDS: Heparin 5,000 UNITS/ML VIAL SC SCH (08:32)
[2024-07-03] MEDS ORDERED: Isosorbide Mononitrate 30 MG ER.TAB PO SCH (09:00)
[2024-07-03 20:55] VITALS: TEMP 98.1
[2024-07-03] MEDS: Insulin Glargine 30 UNITS/0.3 ML VIAL SC SCH (21:08)
== END 2024-07-03 21:10 | disposition short-term general hospital (02) | DRG 280 ==
LOC: ERS 11:55 → CCL 12:00 → CCU 12:35 → EEVIPCON 12:35 → 2NO 07-02 16:38 → CCU 07-03 03:19
PROVIDERS: ADMIT Student in an Organized Health Care Education/Training Program; ATTEND Internal Medicine
PROC: 4A023N8 Measurement of Cardiac Sampling and Pressure, Bilateral, Percutaneous Approach (ICD-10-PCS; principal; 2024-07-01)
PROC: B2151ZZ Fluoroscopy of Left Heart using Low Osmolar Contrast (ICD-10-PCS; 2024-07-01)
PROC: B2111ZZ Fluoroscopy of Multiple Coronary Arteries using Low Osmolar Contrast (ICD-10-PCS; 2024-07-01)
PROC: 5A09357 Assistance with Respiratory Ventilation, Less than 24 Consecutive Hours, Continuous Positive Airway Pressure (ICD-10-PCS; 2024-07-01)
DX: I21.3 ST elevation (STEMI) myocardial infarction of unspecified site (principal); I50.23 Acute on chronic systolic (congestive) heart failure; J96.01 Acute respiratory failure with hypoxia; R57.0 Cardiogenic shock; E87.1 Hypo-osmolality and hyponatremia; I47.20 Ventricular tachycardia, unspecified; Z91.010 Allergy to peanuts; Z88.8 Allergy status to other drugs, medicaments and biological substances; I25.10 Atherosclerotic heart disease of native coronary artery without angina pectoris; J44.9 Chronic obstructive pulmonary disease, unspecified; E11.9 Type 2 diabetes mellitus without complications; Z90.49 Acquired absence of other specified parts of digestive tract; Z98.49 Cataract extraction status, unspecified eye; Z87.891 Personal history of nicotine dependence; E78.5 Hyperlipidemia, unspecified; F32.A Depression, unspecified; G47.33 Obstructive sleep apnea (adult) (pediatric); Z79.82 Long term (current) use of aspirin; I11.0 Hypertensive heart disease with heart failure; F41.9 Anxiety disorder, unspecified; E83.42 Hypomagnesemia; I25.5 Ischemic cardiomyopathy; N40.0 Benign prostatic hyperplasia without lower urinary tract symptoms
CPT/HCPCS: 36415; 36416; 71045; 80048; 80053; 80061; 82805; 83605; 83735; 83880; 84484; 85025; 85347; 93005; 93010; 93458; 93459; 94660; 99152; 99153; C1725; C1769; C1887; C1894; J1200; J1250; J1644; J1650; J1815; J2272; J2405; J3475; J3490; J7030; Q9967